=== PATIENT | male | born 1985 | race Caucasian/White ===

== ENCOUNTER 2019-04-20 09:41 | Emergency (ER) | payer MEDICAID ==
[~2019-04-20] VITALS: Ht 172.7 cm; Wt 82.1 kg
[2019-04-20 09:56] VITALS: BP 125/53; Ht 172.7 cm; Wt 82.1 kg
== END 2019-04-20 11:23 | disposition home or self-care (01) ==
LOC: ED 09:41
DX: B34.9 Viral infection, unspecified (principal); S19.9XXA Unspecified injury of neck, initial encounter; X58.XXXA Exposure to other specified factors, initial encounter; Y93.89 Activity, other specified; Y92.89 Other specified places as the place of occurrence of the external cause; Y99.8 Other external cause status
CPT/HCPCS: 87804